=== PATIENT | female | born 1970 | race Hispanic/Latino ===

== ENCOUNTER 2017-10-14 09:32 | Emergency (ER) | payer BC, OTHER ==
[2017-10-14] MEDS ORDERED: SULFAMETHOX-TMP DS 800/160 TAB ONE (09:53)
== END 2017-10-14 10:03 | disposition home or self-care (01) ==
LOC: EDH 09:32
DX: L02.411 Cutaneous abscess of right axilla (principal); Z90.49 Acquired absence of other specified parts of digestive tract; Z72.0 Tobacco use

== ENCOUNTER → 2018-11-01 | Outpatient (CLI) | payer BC ==
[2018-11-01 11:24] LABS: BASOPHILS % (AUTO) 0.7 % (0.0-5.0); EOSINOPHILS % (AUTO) 2.8 % (0.0-8.0); HEMATOCRIT 36.7 % (36-48); LYMPHOCYTES % (AUTO) 22.7 % (21.0-51.0); MEAN CORPUSCULAR HEMOGLOBIN 23.9 pg (27.0-33.0); MEAN CORPUSCULAR HGB CONC 32.2 g/dL (32.0-36.0); MEAN CORPUSCULAR VOLUME 74.2 fL (79-99); MONOCYTES % (AUTO) 6.6 % (3.0-13.0); NEUTROPHILS % (AUTO) 67.2 % (40.0-77.0); NUCLEATED RED BLOOD CELLS 0.1 % (0.0-0.19); PLATELET COUNT (AUTO) 281 K/uL (130-400); RED BLOOD CELL COUNT(AUTO) 4.94 MIL/uL (4.00-5.50); RED CELL DISTRIBUTION WIDTH 17.8 % (11.0-15.5); WHITE BLOOD COUNT (AUTO) 8.4 K/uL (4.8-10.8)
[2018-11-01 11:39] LABS: ALBUMIN 3.6 g/dL (3.5-5.0); BILIRUBIN,TOTAL 0.9 mg/dL (0.2-1.0); CREATININE 0.7 mg/dL (0.5-1.5); POTASSIUM 3.9 mmol/L (3.5-5.1); TOTAL PROTEIN, SERUM 7.1 g/dL (6.0-8.3)
== END | disposition home or self-care (01) ==
LOC: RAH 10:09
PROVIDERS: ATTEND Internal Medicine Gastroenterology
DX: K76.0 Fatty (change of) liver, not elsewhere classified (principal); Z90.49 Acquired absence of other specified parts of digestive tract
CPT/HCPCS: 36415; 76700; 80053; 82150; 83690; 85025; 87507

== ENCOUNTER → 2024-02-09 | Outpatient (CLI) | payer BC | END | disposition home or self-care (01) | LOC: RAH 09:52 | PROVIDERS: ATTEND Surgery | DX: R12 Heartburn (principal); K95.89 Other complications of other bariatric procedure | CPT/HCPCS: 74240 ==

== ENCOUNTER 2024-03-09 06:23 | Day surgery (SDC) | payer BC ==
[2024-03-09] VITALS (11 sets, daily range): BP systolic 94–158; BP diastolic 56–85; PULSE 56–84; RESP 14–17; TEMP 96.8–97.6
[~2024-03-09] VITALS: Ht 160 cm; Wt 97.5 kg
[~2024-03-09 06:23] MED LIST: MELA10CA2 PO; SERT-439 PO; TOPI25CA6 PO
[2024-03-09] MEDS: 0.9%NACL 1000ML 1,000 ML IV ONE (07:23)
[2024-03-09] MEDS ORDERED: MIDAZOLAM HCL 1 MG/ML 2ML VIAL ONE (07:59)
[2024-03-09] MEDS ORDERED: LIDOCAINE PF 100MG/5ML (2%) SYRINGE 5ML ONE (07:59)
[2024-03-09] MEDS ORDERED: proPOFol 10 MG/ML 20ML VIAL IV ONE ×2 (07:59→08:11)
[2024-03-09] MEDS ORDERED: ketaMINE 50MG/ML SYRINGE 50 MG/ML DISP.SYRIN ONE (07:59)
[2024-03-09] MEDS ORDERED: GLYCOPYRROLATE 0.2 MG/ML 5 ML VIAL ONE (07:59)
[2024-03-09] MEDS ORDERED: RACEPINEPHRINE HCL 2.25% 0.5 ML NEB SOLN NEB SCH (08:30)
[2024-03-09] MEDS ORDERED: IpraTROPium/alBUTERol SULFATE 3 ML SOLUTION IH ONE ×2 (08:30→08:31)
--- NOTE | 2024-03-09 09:35 | NUR ---
PT S/P UPPER GI, VSS, DENIES ALL C/O OR NECESSITY. TOLERATING CHIPS W/O N/V. INSTRUCTIONS COVERED W FAMILY PRESENT, VERBALIZED UNDERSTANDING. PIV HL DC'D W TIP INTACT, SELF DRESS , VIA W/C W/ ALL BELONGINGS IN NO NOTED OR VERBALIZED DISTRESS.
== END 2024-03-09 09:35 | disposition home or self-care (01) ==
LOC: DAH 06:23 → ENDO 06:23
PROVIDERS: ATTEND Surgery
DX: R10.13 Epigastric pain (principal); K26.9 Duodenal ulcer, unspecified as acute or chronic, without hemorrhage or perforation; K28.9 Gastrojejunal ulcer, unspecified as acute or chronic, without hemorrhage or perforation; K22.89 Other specified disease of esophagus; K21.9 Gastro-esophageal reflux disease without esophagitis; E66.9 Obesity, unspecified; F17.210 Nicotine dependence, cigarettes, uncomplicated; F41.9 Anxiety disorder, unspecified; F32.A Depression, unspecified; G47.33 Obstructive sleep apnea (adult) (pediatric); Z90.49 Acquired absence of other specified parts of digestive tract; Z88.8 Allergy status to other drugs, medicaments and biological substances; Z68.39 Body mass index [BMI] 39.0-39.9, adult; Z98.84 Bariatric surgery status; Z79.899 Other long term (current) drug therapy
CPT/HCPCS: 81025; 43270; 43239; J7030; J2003; J2250; J2704 ×2; J3490 ×2; A4620; A4215 ×2; A4223; A4222; A4221; A4663; A4606